=== PATIENT | female | born 1970 | race Caucasian/White ===

== ENCOUNTER 2016-10-03 12:06 | Emergency (ER) | payer MEDICAID ==
[~2016-10-03] VITALS: Wt 106.0 kg
[~2016-10-03 12:06] MED LIST: IBUP-1542 PO
[2016-10-03] MEDS ORDERED: KETOROLAC 30 MG INJ IV STA (12:18)
[2016-10-03] MEDS ORDERED: ONDANSETRON 4 MG INJ IV STA (12:18)
[2016-10-03 12:50] LABS: ADD SCAN DIFF NO
[2016-10-03 12:52] LABS: BASOPHILS % 0.4 % (0.0-2.0); EOSINOPHILS # 0.2 10^3/ul (0.0-0.5); EOSINOPHILS % 1.9 % (0.0-7.0); HEMATOCRIT 39.6 % (37.0-47.0); HEMOGLOBIN 13.2 g/dl (12.0-16.0); LYMPHOCYTES # 2.1 10^3/ul (0.8-2.9); LYMPHOCYTES % 26.7 % (15.0-51.0); MEAN CORPUSCULAR HEMOGLOBIN 27.7 pg (29.0-33.0); MEAN CORPUSCULAR HGB CONC 33.3 g/dl (32.0-37.0); MEAN CORPUSCULAR VOLUME 83.2 fl (82.0-101.0); MEAN PLATELET VOLUME 10.1 fl (7.4-10.4); MONOCYTE # 0.5 10^3/ul (0.3-0.9); MONOCYTES % 6.2 % (0.0-11.0); NEUTROPHIL # 5.1 10^3/ul (1.6-7.5); NEUTROPHILS % 64.7 % (39.0-77.0); PLATELET COUNT 302 10^3/UL (140-415); RED BLOOD COUNT 4.76 10^6/ul (4.20-5.40); RED CELL DISTRIBUTION WIDTH 13.7 % (11.5-14.5); WHITE BLOOD COUNT 7.9 10^3/ul (4.8-10.8)
[2016-10-03 12:58] LABS: ADD UMIC YES; URINE BILIRUBIN (Dip) NEGATIVE (NEGATIVE); URINE BLOOD (Dip) NEGATIVE (NEGATIVE); URINE COLOR LT. YELLOW (YELLOW); URINE GLUCOSE (Dip) NEGATIVE (NEGATIVE); URINE KETONES (Dip) NEGATIVE (NEGATIVE); URINE LEUKOCYTE ESTERASE (Dip) 1+ (NEGATIVE); URINE NITRITE (Dip) NEGATIVE (NEGATIVE); URINE TOTAL PROTEIN (Dip) NEGATIVE (NEGATIVE); URINE UROBILINOGEN (Dip) 0.2 E.U./dL (0.1-1.0)
[2016-10-03 13:11] LABS: ALBUMIN 4.2 g/dl (3.3-4.9); ALBUMIN/GLOBULIN RATIO 1.05; BILIRUBIN,INDIRECT 0.1 mg/dl (0-1.1); BILIRUBIN,TOTAL 0.1 mg/dl (0.2-1.3); CALCIUM 9.3 mg/dl (8.4-10.2); CREATININE 0.56 mg/dl (0.44-1.00); POTASSIUM 4.6 mmol/L (3.5-5.1); TOTAL PROTEIN 8.2 g/dl (6.1-8.1)
[2016-10-03 13:14] LABS: BACTERIA,URINE FEW; URINE RBCS 0-2 /HPF (0)
--- NOTE | 2016-10-03 14:04 | RADRPT ---
PROCEDURE: US Abdomen Right Upper Quadrant. CLINICAL INDICATION: Pain TECHNIQUE: Multiple real-time longitudinal and transverse images were acquired of the patient's [facility] upper quadrant abdomen utilizing a curved array transducer. COMPARISON: None FINDINGS: Liver: The liver is borderline enlarged and appears diffusely echogenic with no focal lesion identif ied. There is normal directional flow of the main portal vein. Gallbladder: Appears unremarkable and no stones are identified. There is no pericholecystic fluid. Bile ducts: There is no significant intra or extrahepatic bile duct dilatation. No choledocholiths a re seen within the visualized portions. The common bile duct measures 5.5 mm in cross diameter. Pancreas: The lateral head of the pancreas and the distal tail are obscured by bowel gas but the vis ualized portions appear unremarkable. Right adrenal : No mass is identified. Right kidney: Normal in echotexture andl in size. The right kidney measures 11.6 cm in length. No ma ss, pathological calcification, or hydronephrosis is evident. Peritoneum: There is no free intraperitoneal fluid IMPRESSION: 1. Normal appearing gallbladder without evidence of cholelithiasis. There is no bile duct dilatati on and the visualized pancreas appears unremarkable. 2. Borderline hepatomegaly with increased echotexture suspicious for diffuse fatty infiltration wit h no focal lesion and with antegrade flow of the main portal vein. 3. Normal-appearing right kidney 4. No free intraperitoneal fluid is evident. Physician Melinda Date Time Electronically viewed and signed by Physician Melinda on 10/03/2016 14:04 /
--- NOTE | 2016-10-03 14:26 | RADRPT ---
PROCEDURE: Chest Radiograph. CLINICAL INDICATION: Abdominal pain TECHNIQUE: Single frontal chest radiograph. COMPARISON: None available FINDINGS: The cardiomediastinal silhouette is within normal limits. No infiltrate or effusion is seen. Th e bones are intact. IMPRESSION: 1. Unremarkable chest radiograph. RPTAT: AA .Zelalem Holcomb MD, MD Date Time Electronically viewed and signed by .Zelalem Holcomb MD, on 10/03/2016 14:26 .B/
[2016-10-03] MEDS ORDERED: FAMO40TA52 PO (14:41)
[2016-10-03] MEDS ORDERED: TRAM50TA2 PO (14:41)
[2016-10-03] MEDS ORDERED: IBUP-1542 PO (14:41)
--- NOTE | 2016-10-03 14:43 | ERD ---
ER Documentation Chief Complaint Date/Time DATE: 10/03/16 TIME: 14:41 Chief Complaint RUQ ABD PAIN RADIATING TO BACK, NAUSEA HPI This 46 female complains of right upper quadrant abdominal pain radiating to the back intermittent for the last week. She denies fevers, vomiting, diarrhea , urinary complaints. She denies any previous history of gallstones or similar pain. ROS All systems reviewed and are negative except as per history of present illness. Medications Home Meds Active Scripts Famotidine* (Famotidine*) 40 Mg Tablet, 40 MG PO HS, #30 TAB Prov:ASHLY BOWLING MD 10/03/16 Tramadol HCl (Tramadol HCl) 50 Mg Tablet, 50 MG PO Q4 Y for PAIN, #15 TAB Prov:ASHLY BOWLING MD 10/03/16 Ibuprofen* (Motrin*) 600 Mg Tab, 600 MG PO Q6, #20 TAB Prov:ASHLY BOWLING MD 10/03/16 Ibuprofen* (Motrin*) 600 Mg Tab, 600 MG PO Q6, #30 TAB Prov:MARILYN MELO 04/03/15 PMhx/Soc Medical and Surgical Hx: pt denies Medical Hx, pt denies Surgical Hx Hx Alcohol Use: No Hx Substance Use: No Hx Tobacco Use: No Smoking Status: Never smoker Physical Exam Vitals Vital Signs Date Time Temp Pulse Resp B/P Pulse Ox O2 Delivery O2 Flow Rate FiO2 10/03/16 12:09 98.5 90 18 143/95 97 Physical Exam Const: [] Alert, [id number]. Morbidly obese per Head: Atraumatic Eyes: Normal Conjunctiva ENT: Normal External Ears, Nose and Mouth. Neck: Full range of motion..~ No meningismus. Resp: Clear to auscultation bilaterally Cardio: Regular rate and rhythm, no murmurs Abd: Soft, tender in the right upper quadrant without rebound. No tenderness at McBurney's point., non distended. Normal bowel sounds Skin: No petechiae or rashes Back: No midline or flank tenderness Ext: No cyanosis, or edema Neur: Awake and alert Psych: Normal Mood and Affect Result Diagram: 10/03/16 1230 10/03/16 1230 Results 24 hrs Laboratory Tests Test 10/03/16 12:30 White Blood Count 7.910^3/ul Red Blood Count 4.7610^6/ul Hemoglobin 13.2g/dl Hematocrit 39.6% Mean Corpuscular Volume 83.2fl Mean Corpuscular Hemoglobin 27.7pg Mean Corpuscular Hemoglobin Concent 33.3g/dl Red Cell Distribution Width 13.7% Platelet Count 83932^3/UL Mean Platelet Volume 10.1fl Neutrophils % 64.7% Lymphocytes % 26.7% Monocytes % 6.2% Eosinophils % 1.9% Basophils % 0.4% Nucleated Red Blood Cells % 0.0/100WBC Neutrophils # 5.110^3/ul Lymphocytes # 2.110^3/ul Monocytes # 0.510^3/ul Eosinophils # 0.210^3/ul Basophils # 0.010^3/ul Nucleated Red Blood Cells # 0.010^3/ul Urine Color LT. YELLOW Urine Clarity CLEAR Urine pH 5.5 Urine Specific [place] <=1.005 Urine Ketones NEGATIVE Urine Nitrite NEGATIVE Urine Bilirubin NEGATIVE Urine Urobilinogen 0.2 E.U./dL Urine Leukocyte Esterase 1+ Urine Microscopic RBC 0-2/HPF Urine Microscopic WBC 2-5/HPF Urine Epithelial Cells MODERATE Urine Bacteria FEW Urine Hemoglobin NEGATIVE Urine Glucose NEGATIVE% Urine Total Protein NEGATIVE Sodium Level 135mmol/L Potassium Level 4.6mmol/L Chloride Level 105mmol/L Carbon Dioxide Level 24mmol/L Anion Gap 11 Blood Urea Nitrogen 9mg/dl Creatinine 0.56mg/dl Glucose Level 153mg/dl Calcium Level 9.3mg/dl Total Bilirubin 0.1mg/dl Direct Bilirubin 0.00mg/dl Indirect Bilirubin 0.1mg/dl Aspartate Amino Transf (AST/SGOT) 69IU/L Alanine Aminotransferase (ALT/SGPT) 60IU/L Alkaline Phosphatase 103IU/L Total Protein 8.2g/dl Albumin 4.2g/dl Globulin 4.00g/dl Albumin/Globulin Ratio 1.05 Lipase 92U/L Current Medications Medications (Trade) Dose Ordered Sig/Leatha Route PRN Reason Start Time Stop Time Status Last Admin Dose Admin Ondansetron HCl (Zofran Inj) 4 mg ONCE STAT IV 10/03/16 12:18 10/03/16 12:20 DC 10/03/16 12:26 Ketorolac Tromethamine (Toradol) 30 mg ONCE STAT IV 10/03/16 12:18 10/03/16 12:21 DC 10/03/16 12:26 Procedures/MDM Patient presents with right upper quadrant abdominal pain of uncertain etiology. CBC is normal. CMP shows no acute abnormalities. Lipase is normal. Urine shows 1+ leukocytes but many epithelial cells few bacteria. Will quadrant ultrasound shows fatty liver without evidence of gallstones or evidence of obstruction or cholecystitis. Patient was given Toradol 30 mg IV and Zofran 4 mg IV. Patient has right upper quadrant abdominal pain of uncertain etiology. Patient does not have signs or symptoms or risk factors for PE. Chest X-ray 1V Interpreted by me: Soft Tissue: No acute abnormalities Bones: No acute abnormalities Mediastinum/Cardiac Silhouette/Lungs: [No acute abnormalities]. Impression have normal 1 view chest x-ray Patient has no signs or symptoms of pneumonia, hypoxemia, obstruction, acute abdomen, signs to suggest UTI. Patient will be treated with tramadol and ibuprofen and Pepcid and further observation at home. The patient was stable with no new complaints during the ER course. Clinically, there is no current evidence to suggest meningitis, sepsis, acute abdomen, pneumonia, acute coronary syndrome, pulmonary embolism, or any other emergent condition appearing to require further evaluation or hospitalization. The patient should certainly return for any new or worsening symptoms per the aftercare instructions. They should otherwise follow-up with her primary care doctor for reevaluation this week. Departure Diagnosis: Primary Impression: Abdominal pain Condition: Stable ASHLY BOWLING MD October 03, 2016 14:43
== END 2016-10-03 14:55 | disposition home or self-care (01) ==
LOC: FTE 12:06
DX: R10.11 Right upper quadrant pain (principal); R11.0 Nausea
CPT/HCPCS: 36415; 71010; 76705; 80053; 81001; 83690; 85025; 96374; 96375; J1885; J2405; Z7502; 81003